=== PATIENT | male | born 1975 | race Caucasian/White ===

== ENCOUNTER 2016-07-10 08:00 | Emergency (ER) | payer SELFPAY ==
[2016-07-10 08:18] LABS: APPEARANCE,URINE Cloudy (CLEAR); COLOR,URINE Yellow (YELLOW); OCCULT BLOOD,URINE 2+ (NEGATIVE); PH URINE 8.5 (5.0 - 8.0); UROBILINOGEN URINE 0.2 Eu (0.2-1.0)
[2016-07-10 08:36] LABS: AMORPHOUS SEDIMENT,UR MODERATE (NEGATIVE)
[2016-07-10] MEDS ORDERED: 0.9 % SODIUM CHLORIDE 1,000 ML IV ONE ×3 (08:50→09:58)
[2016-07-10] MEDS ORDERED: KETOROLAC TROMETHAMINE 30 MG/1ML VIAL IVP ONE (08:50)
[2016-07-10] MEDS ORDERED: KETOROLAC TROMETHAMINE 30 MG/1ML VIAL ONE (08:52)
[2016-07-10] MEDS ORDERED: fentaNYL CITRATE/PF 100 MCG/ 2ML AMP IVP ONE (09:25)
[2016-07-10] MEDS ORDERED: TAMSULOSIN HCL 0.4 MG CAP.ER.24H PO ONE (10:36)
[2016-07-10] MEDS ORDERED: BUTORPHANOL TARTRATE 2 MG/ML VIAL IM ONE (11:20)
[2016-07-10 12:19] VITALS: BP 132/78
--- NOTE | 2016-07-10 13:47 | Diagnostic Imaging Report ---
[facility] [place] [facility] [address] [facility] [address] [place], [place]. [address] Report Submission Date: July 10, 2016 10:31:46 AM CDT Patient Study Name: TAMARA HILL Date: July 10, 2016 9:02:06 AM CDT Modality Type: CT\SR Gender: M Description: CT ABD & PELVIS W/O CO : 75 Institution: [facility] [place] [facility] Physician LOGAN BACH (ESOL INSTRUCTOR) - ER Computed tomography of the abdomen and pelvis without contrast HISTORY: Left flank pain and hematuria FINDINGS: Transverse abdomen and pelvis sections are obtained without contrast. Mild left hydroureteronephrosis and perinephric stranding are observed. A 5 x 11 mm proximal left ureteral stone is observed just beyond the ureteropelvic junction. 2 mm and 9 mm right intrarenal stones and a punctate left intrarenal stone are also present. The gallbladder, liver, pancreas, adrenals, spleen, mesenteric structures, and great vessels are unremarkable. Bowel loops exhibit normal caliber and wall thickness. No significant lumbar abnormality is observed. The appendix is normal. Pelvic sections reveal unremarkable bowel loops, prostate, seminal vesicles, and urinary bladder. No acute pelvic abnormality is observed. Pelvic phleboliths are noted. IMPRESSION: 5 x 11 mm proximal left ureteral stone with mild obstructive uropathy. Bilateral intrarenal stones. Electronically signed on July 10, 2016 10:31:46 AM CDT by: Manoj GE
--- NOTE | 2016-07-10 18:24 | ED Physician Documentation ---
Male Genitourinary Problems - HISTORIAN Historian: patient - HPI Stated Complaint: flank pain Chief Complaint: Male Genitourinary Problems Onset: hours (0100) Duration: continues in ED, worse Severity: severe Further Comments: yes (40 year old male patient presents with left flank pain which started at 0100, with nausea. Patient reports a history of renal calculi.) - Associated Symptoms Problems Urinating: pain w/ urination Flank Pain: left sided Abdominal Pain: LLQ - ROS CONST: none GI/: nausea, problems urinating (pain). denies: vomiting, abdominal pain MS/SKIN/LYMPH: none CVS/RESP: none EYES/ENT: none - PAST HX Past History: other (9mm renal calculi 2007, seizures, HLD, depression) Cardiac Disease: none Allergies/Adverse Reactions: Allergies Allergy/AdvReac Type Severity Reaction Status Date / Time No Known Allergies Allergy Unverified 07/10/16 08:27 Home Medications: Ambulatory Orders Medication Instructions Recorded Cholecalciferol [Vitamin D-3] 2,000 unit PO DAILY 07/10/16 Fluoxetine HCl [Prozac] 60 mg PO DAILY 07/10/16 Phenytoin Sodium Extended 100 mg PO QID 07/10/16 [Dilantin] Simvastatin [Zocor] 40 mg PO D 07/10/16 Sulfamethoxazole/Trimethoprim 1 each PO BID #20 tab 07/10/16 [Bactrim Ds] Trazodone HCl [Desyrel] 100 mg PO PRN 07/10/16 - SOCIAL HX Smoking History: cigarettes - FAMILY HX Family History: denies: none - VITAL SIGNS Vital Signs: Vital Signs Temp Pulse Resp BP Pulse Ox 98.3 F 82 18 132/78 98 07/10/16 12:17 07/10/16 12:17 07/10/16 12:17 07/10/16 12:17 07/10/16 12:17 - REVIEWED ASSESSMENTS Nursing Assessment Reviewed: Yes Vitals Reviewed: Yes Progress - Progress Progress: No improvement in pain with toradol injection; Patient medicated for pain fentanyl. Consult with urology, Dr Yao. Reviewed CT results - ok to discharge patient home, flomax and follow up in office. Additional pain medication given at discharge. Instructed patient to return to ER if pain was not controlled at home. ED Results Lab/Radiology - Lab Results Lab Results: Lab Results 07/10/16 08:05 Urine Color Yellow (YELLOW) Urine Appearance Cloudy (CLEAR) Urine pH 8.5 (5.0 - 8.0) Ur Specific [place] 1.015 (1.010-1.030) Urine Protein 1+ mg/dL H mg/dL (NEGATIVE) Urine Ketones Negative mg/dL mg/dL (NEGATIVE) Urine Occult Blood 2+ H (NEGATIVE) Urine Nitrite Negative (NEGATIVE) Urine Bilirubin Negative (NEGATIVE) Urine Urobilinogen 0.2 Eu Eu (0.2-1.0) Ur Leukocyte Esterase Negative (NEGATIVE) Urine RBC 10-25 H (0-2 HPF) Urine WBC 5-10 H (0-5 HPF) Ur Squamous Epith Cells Few (NEG-FEW) Amorphous Sediment Moderate H (NEGATIVE) Urine Bacteria Moderate H (NEGATIVE) Urine Mucus Present H (NEGATIVE) Urine Glucose Negative mg/dL mg/dL (NEGATIVE) - Radiology Radiology Impressions: HISTORY: Left flank pain and hematuria FINDINGS: Transverse abdomen and pelvis sections are obtained without contrast. Mild left hydroureteronephrosis and perinephric stranding are observed. A 5 x 11 mm proximal left ureteral stone is observed just beyond the ureteropelvic junction. 2 mm and 9 mm right intrarenal stones and a punctate left intrarenal stone are also present. The gallbladder, liver, pancreas, adrenals, spleen, mesenteric structures, and great vessels are unremarkable. Bowel loops exhibit normal caliber and wall thickness. No significant lumbar abnormality is observed. The appendix is normal. Pelvic sections reveal unremarkable bowel loops, prostate, seminal vesicles, and urinary bladder. No acute pelvic abnormality is observed. Pelvic phleboliths are noted. IMPRESSION: 5 x 11 mm proximal left ureteral stone with mild obstructive uropathy. Bilateral intrarenal stones. Electronically signed on July 10, 2016 10:31:46 AM CDT by: Manoj Wang - Orders Orders: ED Orders Category Date Time Status Place Saline Lock/IV NOW Care 07/10/16 08:[address] ABD & PELVIS W/O CON Stat Exams 07/10/16 Completed UA W/MICRO IF INDICATED Stat Lab 07/10/16 08:05 Completed URINE CULTURE Stat Lab 07/10/16 08:05 Received 0.9 % Sodium Chloride [Normal Saline] 1,000 ml Med 07/10/16 08:52 Discontinued IV .STK-MED 0.9 % Sodium Chloride [Normal Saline] 1,000 ml Med 07/10/16 08:50 Discontinued IV NOW 0.9 % Sodium Chloride [Normal Saline] 1,000 ml Med 07/10/16 09:58 Discontinued IV NOW Butorphanol Tartrate [Stadol] Med 07/10/16 11:20 Discontinued 2 mg IM NOW ONE Ketorolac Tromethamine [Toradol] Med 07/10/16 08:52 Discontinued 30 mg .ROUTE .STK-MED ONE Ketorolac Tromethamine [Toradol] Med 07/10/16 08:50 Discontinued 30 mg IVP NOW ONE Tamsulosin HCl [Flomax] Med 07/10/16 10:36 Discontinued 0.4 mg PO NOW ONE fentaNYL CITRATE/PF [Duragesic] Med 07/10/16 09:25 Discontinued 50 mcg IVP NOW ONE Male Genitourinary Problems - EXAM General Appearance: moderate distress Abdomen: non-tender, no organomegaly EENT: eye inspection normal, HARSHA Respiratory: no resp distress, chest non-tender, breath sounds normal CVS: reg rate & rhythm, heart sounds normal, equal pulses, no murmur, no gallop , PMI nml, no JVD, no friction rub, 24 Back: CVA tenderness (left) Extremities: normal range of motion, non-tender, normal inspection, no pedal edema, no calf tenderness, normal capillary refill, pelvis stable Neuro/Psych: oriented X3, CN's nml as tested, motor nml, sensation nml, mood/ affect nml Skin: normal color, warm/dry, NR, INT, PAL, DR Discharge Clincal Impression: Renal calculus, left Prescriptions: Sulfamethoxazole/Trimethoprim [Bactrim Ds] 1 each PO BID #20 tab Referrals: Primary Doctor,No [Primary Care Provider] - 2 Days Additional Instructions: Diagnosis: 5x11mm stone UTI Call Dr Yao office today - make a follow up visit marquita. Take your CD and report to the visit [phone] Return to the Er if you pain is not controlled, you are unable to void, or cannot keep down your medications. Home Medications: Ambulatory Orders Cholecalciferol [Vitamin D-3] 2,000 unit PO DAILY 07/10/16 Fluoxetine HCl [Prozac] 60 mg PO DAILY 07/10/16 Phenytoin Sodium Extended [Dilantin] 100 mg PO QID 07/10/16 Simvastatin [Zocor] 40 mg PO D 07/10/16 Sulfamethoxazole/Trimethoprim [Bactrim Ds] 1 each PO BID #20 tab 07/10/16 Trazodone HCl [Desyrel] 100 mg PO PRN 07/10/16 Condition: Stable Disposition: 01 HOME, SELF-CARE Decision to Admit: NO Decision Time: 12:05
== END 2016-07-10 12:17 | disposition home or self-care (01) ==
LOC: ED 08:00
DX: N20.0 Calculus of kidney (principal)
CPT/HCPCS: 74176; 81002; 87086; J0595; J1885; J3010; J7030; 96361; 96372; 96374; 96375; 99284; S1016

== ENCOUNTER 2016-07-28 15:22 | Emergency (ER) | payer SELFPAY ==
[2016-07-28] MEDS ORDERED: oxyCODONE/ACETAMINOPHEN 5/325 TABLET PO ONE ×2 (16:05→16:07)
[2016-07-28 16:54] VITALS: BP 132/68
--- NOTE | 2016-07-28 17:00 | ED Physician Documentation ---
Male Genitourinary Problems - HISTORIAN Historian: patient - HPI Stated Complaint: "PERCOCET REFILL" Chief Complaint: Male Genitourinary Problems Additional Information: here for percocet refill re kidney stones. cleared prov by DR YANG - yes by hosp adm after finding urologists out of town and confirming appt for lithotripsy at [facility] as pt states. Onset: other (chronic recurrent-lab reveals multi stones both kidneys prev ct [facility]) Duration: continues in ED Context: drug use Severity: moderate, severe - Associated Symptoms Abdominal Pain: none - Sexual History Sexual History: non-contributory - ROS CONST: none GI/: nausea, abdominal pain. denies: vomiting MS/SKIN/LYMPH: none CVS/RESP: none - PAST HX Past History: kidney stones (high cholesterol) Cardiac Disease: none Surgeries/Procedures: tonsillectomy Allergies/Adverse Reactions: Allergies Allergy/AdvReac Type Severity Reaction Status Date / Time No Known Allergies Allergy Unverified 07/10/16 08:27 Home Medications: Ambulatory Orders Medication Instructions Recorded Cholecalciferol [Vitamin D-3] 2,000 unit PO DAILY 07/10/16 Fluoxetine HCl [Prozac] 60 mg PO DAILY 07/10/16 Phenytoin Sodium Extended 100 mg PO QID 07/10/16 [Dilantin] Simvastatin [Zocor] 40 mg PO D 07/10/16 Sulfamethoxazole/Trimethoprim 1 each PO BID #20 tab 07/10/16 [Bactrim Ds] Trazodone HCl [Desyrel] 100 mg PO HS PRN 07/10/16 - SOCIAL HX Smoking History: non-smoker (none for 3 weeks) Alcohol Use: none Drug Use: none - FAMILY HX Family History: none - VITAL SIGNS Vital Signs: Vital Signs Temp Pulse Resp BP Pulse Ox 97 F L 87 18 128/96 98 07/28/16 15:25 07/28/16 15:25 07/28/16 15:25 07/28/16 15:25 07/28/16 15:25 - REVIEWED ASSESSMENTS Nursing Assessment Reviewed: Yes Vitals Reviewed: Yes ED Results Lab/Radiology - Orders Orders: ED Orders Category Date Time Status oxyCODONE HCL/ACETAMINOPHEN [Percocet 5-325 mg Tablet] Med 07/28/16 16:05 Discontinued 1 each PO .STK-MED ONE oxyCODONE HCL/ACETAMINOPHEN [Percocet 5-325 mg Tablet] Med 07/28/16 16:07 Discontinued 1 each PO NOW ONE Male Genitourinary Problems - EXAM General Appearance: moderate distress Abdomen: tenderness. No: non-tender, guarding, rebound EENT: ENT inspection normal Respiratory: no resp distress, chest non-tender, breath sounds normal. No: wheezes, rales, rhonchi CVS: reg rate & rhythm, heart sounds normal Extremities: normal range of motion Neuro/Psych: oriented X3, motor nml, sensation nml, mood/affect nml Skin: diaphoresis Discharge Clincal Impression: Renal lithiasis Referrals: Primary Doctor,No [Primary Care Provider] - 2 Days Home Medications: Ambulatory Orders Cholecalciferol [Vitamin D-3] 2,000 unit PO DAILY 07/10/16 Fluoxetine HCl [Prozac] 60 mg PO DAILY 07/10/16 Phenytoin Sodium Extended [Dilantin] 100 mg PO QID 07/10/16 Simvastatin [Zocor] 40 mg PO D 07/10/16 Sulfamethoxazole/Trimethoprim [Bactrim Ds] 1 each PO BID #20 tab 07/10/16 Trazodone HCl [Desyrel] 100 mg PO HS PRN 07/10/16 Condition: Fair Disposition: 01 HOME, SELF-CARE Decision to Admit: NO Decision Time: 16:59
== END 2016-07-28 16:52 | disposition home or self-care (01) ==
LOC: ED 15:22
DX: N20.0 Calculus of kidney (principal)
CPT/HCPCS: A9270 ×2; 99283

== ENCOUNTER 2016-09-06 13:05 | Emergency (ER) | payer OTHER ==
[2016-09-06] MEDS ORDERED: KETOROLAC TROMETHAMINE 30 MG/1ML VIAL IVP ONE (13:26)
[2016-09-06] MEDS ORDERED: 0.9 % SODIUM CHLORIDE 1,000 ML IV ONE (13:27)
[2016-09-06 13:35] LABS: APPEARANCE,URINE Cloudy (CLEAR); COLOR,URINE Yellow (YELLOW); OCCULT BLOOD,URINE 3+ (NEGATIVE); PH URINE 5.5 (5.0 - 8.0); UROBILINOGEN URINE 0.2 Eu (0.2-1.0)
[2016-09-06 13:40] LABS: BASOPHILS % 0.6 (0.0-1.5); EOSINOPHILS % 2.4 % (0.0-6.8); MEAN CORPUSCULAR HEMOGLOBIN 31.8 pg (28.0-34.0); MEAN CORPUSCULAR VOLUME 91.6 fl (80.0-100.0); MONOCYTES % 4.8 % (0.0-11.0); NEUTROPHILS # 4.9 # k/uL (1.4-7.7)
[2016-09-06 13:44] LABS: AMORPHOUS SEDIMENT,UR FEW (NEGATIVE)
--- NOTE | 2016-09-06 13:44 | ED Physician Documentation ---
General Adult - HISTORIAN Historian: patient - HPI Stated Complaint: Hematuria Chief Complaint: General Adult Additional Information: Right Lithotripsy and Left stone retrieval with stent placement on 08/29, for two stones he says were 5x11 mm. Left flank and urethral pain and hematuria began this morning. Says he called his urologist and was told to come to ER. - ROS CONST: no problems - PAST HX Past History: other (kidney stones) Allergies/Adverse Reactions: Allergies Allergy/AdvReac Type Severity Reaction Status Date / Time No Known Allergies Allergy Verified 09/06/16 13:13 Home Medications: Ambulatory Orders Medication Instructions Recorded Cholecalciferol [Vitamin D-3] 2,000 unit PO DAILY 07/10/16 Fluoxetine HCl [Prozac] 60 mg PO DAILY 07/10/16 Phenytoin Sodium Extended 100 mg PO QID 07/10/16 [Dilantin] Simvastatin [Zocor] 40 mg PO D 07/10/16 Trazodone HCl [Desyrel] 100 mg PO HS PRN 07/10/16 - SOCIAL HX Smoking History: non-smoker - FAMILY HX Family History: No - VITAL SIGNS Vital Signs: Vital Signs Temp Pulse Resp BP Pulse Ox 99.1 F 69 18 147/94 97 09/06/16 13:14 09/06/16 13:14 09/06/16 13:14 09/06/16 13:14 09/06/16 13:14 - REVIEWED ASSESSMENTS Nursing Assessment Reviewed: Yes Vitals Reviewed: Yes Progress - Progress Progress: Examination: CT Abdomen/pelvis History: Left flank discomfort Comparison exams: 10 Jul 2016 Technique: CT Abdomen/pelvis without contrast protocol. Findings: Renal cortical margins are symmetric. Left ureteral stent in place. No suspicious left-sided renal calcification. Right kidney demonstrates numerous calcifications involving the inferior margin: largest cluster measures 7 mm. Mild dilation of the right ureter. At the ureterovesicular junction is 4 mm calcification. Faint sub millimeter calcifications within the distal ureter. Bladder as visualized is without other gross irregularity given technique. Scattered pelvic phleboliths. Liver, spleen, adrenals, gallbladder and pancreas are without gross irregularity. Bowel unopacified limiting evaluation. Appendix region without inflammatory changes. No mesenteric inflammatory changes or free fluid. Hiatal hernia. Osseous structures demonstrate degenerative changes. Lung bases without infiltrate. Impression: Left ureteral stent in place. 4 mm Right ureterolithiasis - stone at the right ureterovesicular junction. Dilation of the proximal right ureter with possible small submillimeter residual calcifications within the distal ureter lumen. Right nephrolithiasis. Hiatal hernia. Electronically signed on Sep 06, 2016 2:19:49 PM CDT by: Pardeep Carlson Script filled 08/29for #50 5/325 percocet. Wants pain meds. ED Results Lab/Radiology - Orders Orders: ED Orders Category Date Time Status Place IV Lock 1T Care 09/06/16 13:[address] ABD & PELVIS W/O CON Stat Exams 09/06/16 Ordered CBC/PLATELET/DIFF Routine Lab 09/06/16 Ordered CMP [CMP] Routine Lab 09/06/16 Ordered UA [URINALYSIS] Routine Lab 09/06/16 13:30 Received 0.9 % Sodium Chloride [Normal Saline] 1,000 ml Med 09/06/16 13:27 Active IV Q1H Ketorolac Tromethamine [Toradol] Med 09/06/16 13:26 Discontinued 30 mg IVP NOW ONE General Adult Physical Exam - PHYSICAL EXAM GENERAL APPEARANCE: mild distress EENT: eye inspection normal, ENT inspection normal NECK: normal inspection, supple RESPIRATORY: no resp distress, breath sounds normal CVS: reg rate & rhythm, heart sounds normal, no murmur ABDOMEN: soft, normal bowel sounds RECTAL: deferred BACK: normal inspection, no CVA tenderness, other (no vertebral tenderness) SKIN: warm/dry, normal color EXTREMITIES: no evidence of injury, no edema NEURO: CN's nml as tested, motor nml, sensation nml, cognition normal Discharge Clincal Impression: Kidney stone on right side Referrals: Primary Doctor,No [Primary Care Provider] - 2 Days Home Medications: Ambulatory Orders Cholecalciferol [Vitamin D-3] 2,000 unit PO DAILY 07/10/16 Fluoxetine HCl [Prozac] 60 mg PO DAILY 07/10/16 Phenytoin Sodium Extended [Dilantin] 100 mg PO QID 07/10/16 Simvastatin [Zocor] 40 mg PO D 07/10/16 Trazodone HCl [Desyrel] 100 mg PO HS PRN 07/10/16 Condition: Good Disposition: 01 HOME, SELF-CARE Decision to Admit: NO Decision Time: 14:30
[2016-09-06 14:01] LABS: eGFR (African) > 60; eGFR (Non-African) > 60
[2016-09-06 14:41] VITALS: BP 132/67
--- NOTE | 2016-09-06 14:46 | Diagnostic Imaging Report ---
TRINY CUENCA - [place] [address] [facility] [address] [place], [place]. [address] Report Submission Date: Sep 06, 2016 2:19:49 PM CDT Patient Study Name: TAMARA HILL Date: Sep 06, 2016 1:47:02 PM CDT Modality Type: CT\SR Gender: M Description: CT ABD & PELVIS W/O CO : 75 Institution: Physician: TRINY CUENCA Examination: CT Abdomen/pelvis History: Left flank discomfort Comparison exams: 10 Jul 2016 Technique: CT Abdomen/pelvis without contrast protocol. Findings: Renal cortical margins are symmetric. Left ureteral stent in place. No suspicious left-sided renal calcification. Right kidney demonstrates numerous calcifications involving the inferior margin: largest cluster measures 7 mm. Mild dilation of the right ureter. At the ureterovesicular junction is 4 mm calcification. Faint sub millimeter calcifications within the distal ureter. Bladder as visualized is without other gross irregularity given technique. Scattered pelvic phleboliths. Liver, spleen, adrenals, gallbladder and pancreas are without gross irregularity. Bowel unopacified limiting evaluation. Appendix region without inflammatory changes. No mesenteric inflammatory changes or free fluid. Hiatal hernia. Osseous structures demonstrate degenerative changes. Lung bases without infiltrate. Impression: Left ureteral stent in place. 4 mm Right ureterolithiasis - stone at the right ureterovesicular junction. Dilation of the proximal right ureter with possible small submillimeter residual calcifications within the distal ureter lumen. Right nephrolithiasis. Hiatal hernia. Electronically signed on Sep 06, 2016 2:19:49 PM CDT by: Pardeep GE
== END 2016-09-06 14:40 | disposition home or self-care (01) ==
LOC: ED 13:05
DX: N20.0 Calculus of kidney (principal)
CPT/HCPCS: 74176; 80053; 81002; 85025; 87086; J1885; J7030; 96361; 96374; 99283; S1016

== ENCOUNTER 2017-04-03 10:34 | Emergency (ER) | payer OTHER ==
[2017-04-03 10:54] VITALS: BP 133/83
--- NOTE | 2017-04-03 11:13 | ED Physician Documentation ---
General Adult - HISTORIAN Historian: patient - HPI Stated Complaint: R flank pain Chief Complaint: General Adult Additional Information: Patient has had a history of kidney stones. Had a stone o n the right side and had lithotripsy done and a stint placed one week ago. Started to have have associated with the stint 1-2 days after procedure. Has had progressive discomfort associated with it. Pain in the bladder area and right flank area all the time. Worse post voiding. Has had some nausea and vomiting associated with pain. No fever noted. Has not passed any blood clots over the last two days. Timing: still present, worse Modifying Factors: movement Quality: intense sharp pain - ROS CONST: denies: fever, chills GI/: denies: problems urinating - PAST HX Past History: kidney stones Other History: none Surgeries/Procedures: other (lithotripty) Immunizations: referred to PCP Allergies/Adverse Reactions: Allergies Allergy/AdvReac Type Severity Reaction Status Date / Time No Known Allergies Allergy Verified 04/03/17 10:54 Home Medications: Ambulatory Orders Medication Instructions Recorded Cholecalciferol [Vitamin D-3] 2,000 unit PO DAILY 07/10/16 Fluoxetine HCl [Prozac] 60 mg PO DAILY 07/10/16 Phenytoin Sodium Extended 100 mg PO QID 07/10/16 [Dilantin] Simvastatin [Zocor] 40 mg PO D 07/10/16 Trazodone HCl [Desyrel] 100 mg PO HS PRN 07/10/16 - SOCIAL HX Smoking History: less than 1 pack/day Alcohol Use: none Drug Use: none - FAMILY HX Family History: No - VITAL SIGNS Vital Signs: Vital Signs Temp Pulse Resp BP Pulse Ox 97.8 F 79 18 133/83 98 04/03/17 10:36 04/03/17 10:36 04/03/17 10:36 04/03/17 10:36 04/03/17 10:36 - REVIEWED ASSESSMENTS Nursing Assessment Reviewed: Yes Vitals Reviewed: Yes Progress - Progress Progress: 11:10 toradal did not help with pain much, will give fentanyl IV 11:35 Pain improved 12:10 Pain returning General Adult Physical Exam - PHYSICAL EXAM GENERAL APPEARANCE: mild distress NECK: normal inspection RESPIRATORY: no resp distress, chest non-tender, breath sounds normal. No: wheezes, rales, rhonchi CVS: reg rate & rhythm, heart sounds normal, equal pulses, no murmur, no gallop ABDOMEN: soft, normal bowel sounds, no distension, tenderness (RLQ andright flank area). No: rebound, guarding BACK: CVA tenderness (R) (mild) SKIN: warm/dry, normal color NEURO: oriented X3, mood/affect nml, cognition normal Discharge Clincal Impression: Flank pain Referrals: Primary Doctor,No [Primary Care Provider] - 2 Days Additional Instructions: Patient advised that [facility] will call in pain medication for him and to try to leave the stint in place until appointment to take it out. If you continue to have a lot of discomfort to follow-up with urologist or return to the ED. Condition: Stable Disposition: 01 HOME, SELF-CARE Decision to Admit: NO Date of Decison to Admit: 04/03/17 Decision Time: 12:19
[2017-04-03] MEDS ORDERED: fentaNYL CITRATE/PF 100 MCG/ 2ML AMP IVP ONE ×2 (11:14→12:08)
[2017-04-03 11:29] LABS: BASOPHILS % 0.3 (0.0-1.5); EOSINOPHILS % 2.1 % (0.0-6.8); MEAN CORPUSCULAR HEMOGLOBIN 31.1 pg (28.0-34.0); MEAN CORPUSCULAR VOLUME 92.2 fl (80.0-100.0); MONOCYTES % 4.1 % (0.0-11.0); NEUTROPHILS # 6.3 # k/uL (1.4-7.7)
[2017-04-03] MEDS ORDERED: ONDANSETRON HCL/PF 4 MG/ 2ML VIAL ONE (11:40)
[2017-04-03 11:45] LABS: eGFR (African) > 60; eGFR (Non-African) > 60
[2017-04-04 06:01] LABS: APPEARANCE,URINE CLEAR (CLEAR); COLOR,URINE YELLOW (YELLOW); OCCULT BLOOD,URINE 3+ (NEGATIVE); PH URINE 7.5 (5.0 - 8.0)
== END 2017-04-03 12:27 | disposition home or self-care (01) ==
LOC: ED 10:34
DX: R10.84 Generalized abdominal pain (principal)
CPT/HCPCS: 80053; 81002; 85025; 87086; J2405; J3010; 96374; 96376; 99283; S1016

== ENCOUNTER 2017-07-06 15:04 | Emergency (ER) | payer OTHER ==
[2017-07-06] MEDS: fentaNYL CITRATE/PF 100 MCG/ 2ML AMP IVP ONE (16:48)
--- NOTE | 2017-07-06 16:59 | ED Physician Documentation ---
Abdominal Pain - HISTORIAN Historian: patient - HPI Stated Complaint: Lt flank pain Chief Complaint: Abdominal Pain Additonal Information: lt flank pain 8/10 pmh many prev gu lithiasis multi laser and stents Onset: minutes, hours (30) Duration: constant, waxing, waning Timing: worse Context: denies: out of country travel, bad food Severity: moderate Quality: pain, cramping Associated Symptoms: none, other (had loose stool this am) Further Comments: yes (hx many large gu lithiasis) - ROS CONST: no problems GI/: denies: bloody urine, bloody stools, dark urine EYES/ENT: denies: problems with vision MS/SKIN/LYMPH: none NEURO/PSYCH: none - SOCIAL HX Smoking History: cigarettes Alcohol Use: none Drug Use: none - FAMILY HX Family History: kidney stones - PAST HX Past History: kidney stones, kidney infection, other (anxiety depression) Surgeries/Procedures: other (multi k stones and stents) Home Medications: Ambulatory Orders Medication Instructions Recorded Cholecalciferol [Vitamin D-3] 2,000 unit PO DAILY 07/10/16 Fluoxetine HCl [Prozac] 60 mg PO DAILY 07/10/16 Phenytoin Sodium Extended 100 mg PO QID 07/10/16 [Dilantin] Simvastatin [Zocor] 40 mg PO D 07/10/16 Trazodone HCl [Desyrel] 100 mg PO HS PRN 07/10/16 Allergies/Adverse Reactions: Allergies Allergy/AdvReac Type Severity Reaction Status Date / Time No Known Allergies Allergy Verified 04/03/17 10:54 - VITAL SIGNS Vital Signs: Vital Signs Temp Pulse Resp BP Pulse Ox 97.5 F L 88 18 128/89 99 07/06/17 15:04 07/06/17 15:04 07/06/17 15:04 07/06/17 15:04 07/06/17 15:04 - REVIEWED ASSESSMENTS Nursing Assessment Reviewed: Yes Vitals Reviewed: Yes ED Results Lab/Radiology - Orders Orders: ED Orders Category Date Time Status CT ABDOMEN PELVIS S [CT ABD & PELVIS W/O CON] Stat Exams 07/06/17 Ordered fentaNYL CITRATE/PF [Duragesic] Med 07/06/17 16:39 Discontinued 100 mcg IVP NOW ONE Abdominal Pain Physical Exam - Physical Exam General Appearance: mild distress, moderate distress EENT: eye inspection normal NECK: normal inspection, thyroid normal, supple RESPIRATORY: no resp distress, chest non-tender, breath sounds normal CVS: reg rate & rhythm, heart sounds normal ABDOMEN: soft, tenderness (genl ezio lt mid abdomen). No: rebound, distended, guarding SKIN: warm/dry, normal color. No: cyanosis, diaphoresis, jaundice EXTREMITIES: non-tender, normal range of motion, no evidence of injury, no edema NEURO: oriented X3, motor nml, sensation nml, mood/affect nml Vital Signs: Vital Signs Temp Pulse Resp BP Pulse Ox 97.5 F L 88 18 128/89 99 07/06/17 15:04 07/06/17 15:04 07/06/17 15:04 07/06/17 15:04 07/06/17 15:04 Discharge Clincal Impression: un dx abdomen pain-constipation, pnh multi gu lithiasis, multi stones kidneys- ureters clear, suspect constipation Referrals: Primary Doctor,No [Primary Care Provider] - 2 Days Comments: send ct disc w/ pt -f/u soon w/pcp or urologists. rec laxative high fluid intake Condition: Fair Disposition: 01 HOME, SELF-CARE Decision to Admit: NO Decision Time: 17:21
[2017-07-06 18:46] VITALS: BP 128/72
--- NOTE | 2017-07-06 19:30 | Diagnostic Imaging Report ---
TIGRE XIE [facility] [id number] [facility] [address] [place], [place]. [address] Report Submission Date: July 06, 2017 4:52:39 PM CDT Patient Study Name: TAMARA HILL Date: July 06, 2017 4:19:01 PM CDT Modality Type: CT\SR Gender: M Description: CT ABD PELVIS W/O CO : 75 Institution: [facility] Physician: TIGRE XIE Examination: CT Abdomen/pelvis History: CT A/P W/O, RENAL STONE PROTOCOL, LEFT FLANK PAIN SINCE NOON, HX OF KIDNEY STONES, MOST RECENTLY IN MID MAR. (Hx) Comparison exams: 06 September 2016 Technique: CT Abdomen/pelvis without IV protocol. Findings: Liver, spleen, adrenals, pancreas, kidneys and gallbladder are without gross irregularity given exam technique. No gallstone. Bilateral punctate calyceal calcifications. Ureters are nondilated in their course through the abdomen and pelvis. No central calcifications. Bladder margin within normal limits. Abdominal aorta without aneurysm or peripheral atherosclerotic disease. Cardiac silhouette is not enlarged. No pericardial effusion. Bowel unopacified limiting evaluation. No abnormal dilation. Stool within the large bowel limiting sensitivity. No mesenteric inflammatory changes or free fluid. Appendix is visualized and is without inflammatory changes. Osseous structures demonstrate early L5/S1 degenerative disease. No compression deformity. Lung bases without infiltrate. No effusion. Impression: No abdominal mass or acute inflammatory process. No abnormal bowel dilation or inflammation. No gallstone. Bilateral nephrolithiasis. No abnormal ureteric dilation. No lung base consolidation or effusion. Electronically signed on July 06, 2017 4:52:39 PM CDT by: Pardeep GE
[2017-07-07 06:05] LABS: APPEARANCE,URINE CLEAR (CLEAR); COLOR,URINE ORANGE (YELLOW)
[2017-07-07 06:06] LABS: OCCULT BLOOD,URINE NEGATIVE (NEGATIVE); PH URINE 8.5 (5.0 - 8.0); UROBILINOGEN URINE >=8.0 Eu (0.2-1.0)
== END 2017-07-06 17:35 | disposition home or self-care (01) ==
LOC: ED 15:04
DX: R10.9 Unspecified abdominal pain (principal); Z87.442 Personal history of urinary calculi
CPT/HCPCS: 74176; 81002; 87086; J3010; 96374; S1016

== ENCOUNTER 2017-07-27 13:55 | Emergency (ER) | payer OTHER ==
[2017-07-27 14:31] VITALS: BP 116/78
[2017-07-27] MEDS ORDERED: TAMSULOSIN HCL 0.4 MG CAP.ER.24H PO ONE (14:40)
--- NOTE | 2017-07-27 14:48 | ED Physician Documentation ---
Male Genitourinary Problems - HISTORIAN Historian: patient - HPI Stated Complaint: difficulty urinating Chief Complaint: Male Urogenital Problems Additional Information: x 2 days, urinating small amounts Onset: days ago (2) Duration: continues in ED Context: recent surgery (urinary stenting) Severity: mild Further Comments: no - Associated Symptoms Problems Urinating: frequent urination, other (samll amounts of urine/dribbling) . denies: discomfort w/ urination Penile Discharge Descripiton: other (none) Testicular Pain: none Testicular Swelling: none Penile Pain: No Penile Swelling: No Inguinal Mass: No Abdominal Pain: mild, suprapubic - Sexual History Sexual History: non-contributory - ROS CONST: none GI/: abdominal pain, problems urinating. denies: nausea, vomiting MS/SKIN/LYMPH: none CVS/RESP: none EYES/ENT: none NEURO/PSYCH: denies: fainting, dizziness, tingling, numbness, anxiety, depression - PAST HX Past History: other (kidney stones) Cardiac Disease: none Surgeries/Procedures: none Immunizations: referred to PCP Allergies/Adverse Reactions: Allergies Allergy/AdvReac Type Severity Reaction Status Date / Time No Known Allergies Allergy Verified 07/27/17 14:31 Home Medications: Ambulatory Orders Medication Instructions Recorded Cholecalciferol [Vitamin D-3] 2,000 unit PO DAILY 07/10/16 Fluoxetine HCl [Prozac] 60 mg PO DAILY 07/10/16 Phenytoin Sodium Extended 100 mg PO QID 07/10/16 [Dilantin] Simvastatin [Zocor] 40 mg PO D 07/10/16 Trazodone HCl [Desyrel] 100 mg PO HS PRN 07/10/16 - SOCIAL HX Smoking History: cigarettes Alcohol Use: none Drug Use: none - FAMILY HX Family History: none - VITAL SIGNS Vital Signs: Vital Signs Temp Pulse Resp BP Pulse Ox 99.2 F 59 L 18 116/78 96 07/27/17 13:55 07/27/17 13:55 07/27/17 13:55 07/27/17 13:55 07/27/17 13:55 - REVIEWED ASSESSMENTS Nursing Assessment Reviewed: Yes Vitals Reviewed: Yes Progress - Results/Orders Results/Orders: ua ordered - Progress Progress: Pt. catheterized, 50 cc clear urine obtained Critical Care Note - Critical Care Note Total Time (mins): 0 ED Results Lab/Radiology - Lab Results Lab Results: ua unremarkable - Radiology Radiology Impressions: none ordered - Orders Orders: ED Orders Category Date Time Status Redd [Urinary catheterization] 1T Care 07/27/17 14:05 Active URINALYSIS Routine Lab 07/27/17 14:06 Ordered Tamsulosin HCl [Flomax] Med 07/27/17 14:40 Once 0.4 mg PO NOW ONE Male Genitourinary Problems - EXAM General Appearance: mild distress Abdomen: tenderness (suprapubic area) Genitals: nml inspection EENT: eye inspection normal, ENT inspection normal, pharynx normal, no signs of dehydration, HARSHA Neck: nml inspection Respiratory: no resp distress CVS: reg rate & rhythm, heart sounds normal, equal pulses Back: non-tender. No: CVA tenderness Rectal: prostate enlarged (slightly). No: prostate tenderness Extremities: normal range of motion, non-tender, normal inspection, no pedal edema, no calf tenderness Neuro/Psych: oriented X3, CN's nml as tested, motor nml, sensation nml, mood/ affect nml, cognition normal Skin: warm/dry, normal color Discharge Clincal Impression: Benign prostate hyperplasia Qualifiers: Lower urinary tract symptom presence: symptoms present Lower urinary tract symptom detail: incomplete bladder emptying Qualified Code(s): N40.1 - Benign prostatic hyperplasia with lower urinary tract symptoms Referrals: Primary Doctor,No [Primary Care Provider] - 2 Days Comments: increase Flomax to 0.8 mg p.o. daily for 7 days Condition: Stable Disposition: 01 HOME, SELF-CARE Decision to Admit: NO Decision Time: 14:48
[2017-07-27 16:08] LABS: APPEARANCE,URINE CLEAR (CLEAR); COLOR,URINE YELLOW (YELLOW); OCCULT BLOOD,URINE NEGATIVE (NEGATIVE)
[2017-07-27 16:09] LABS: PH URINE 7.5 (5.0 - 8.0); UROBILINOGEN URINE 0.2 Eu (0.2-1.0)
== END 2017-07-27 14:50 | disposition home or self-care (01) ==
LOC: ED 13:55
DX: N40.1 Benign prostatic hyperplasia with lower urinary tract symptoms (principal)
CPT/HCPCS: 51701; 81002; 99284

== ENCOUNTER 2017-07-31 10:53 | Emergency (ER) | payer OTHER ==
--- NOTE | 2017-07-31 11:53 | ED Physician Documentation ---
Dizziness - HISTORIAN Historian: patient - HPI Stated Complaint: dizzy Chief Complaint: Dizziness Additional Information: 42 yo white male with a 2 day history of dizziness. No precipitating factor noted. Turning head, standing up brings dizziness on. No nausea noted. Has some fluttering anxiety feeling when he gets dizzy. No hearing problems, no tinnitus noted. Associated Symptoms: sense of falling. denies: hearing loss, ringing in ear, roaring in ear, ear pain, nausea, vomiting, sense of spinning, light headedness , fainted Decreased Ability to Stand/ Walk: off balance. denies: weak Usually: walks w/o assistance Worsened By: changing position, movement of head - ROS CONST: none EYES/ENT: none - PAST HX Past History: hyperlipidemia, other (kidney stones, history of seizures) Cardiac Disease: none Surgeries/Procedures: none Allergies/Adverse Reactions: Allergies Allergy/AdvReac Type Severity Reaction Status Date / Time No Known Allergies Allergy Verified 07/27/17 14:31 Home Medications: Ambulatory Orders Medication Instructions Recorded Cholecalciferol [Vitamin D-3] 2,000 unit PO DAILY 07/10/16 Phenytoin Sodium Extended 100 mg PO QID 07/10/16 [Dilantin] Simvastatin [Zocor] 40 mg PO D 07/10/16 Citalopram Hydrobromide [Celexa] 40 mg PO D 07/27/17 LORazepam [Ativan] 1 mg PO D 07/27/17 Oxycodone HCl/Acetaminophen 1 tab PO PRN PRN 07/27/17 [Primlev 5-300 mg Tablet] Tamsulosin HCl [Flomax] 0.4 mg PO D 07/27/17 - SOCIAL HX Smoking History: less than 1 pack/day (1/2 ppd) Alcohol Use: none Drug Use: none - FAMILY HX Family History: none - VITAL SIGNS Vital Signs: Vital Signs Temp Pulse Resp BP Pulse Ox 99.7 F H 87 16 136/76 99 07/31/17 11:03 07/31/17 11:16 07/31/17 11:03 07/31/17 11:16 07/31/17 11:03 - REVIEWED ASSESSMENTS Nursing Assessment Reviewed: Yes Vitals Reviewed: Yes Dizziness Physical Exam - Physical Exam General Appearance: mild distress EENT: eye inspection normal, ENT inspection normal, pharynx normal, no signs of dehydration. No: abnormal TM, hearing deficit, purulent nasal drainage Neck: normal inspection, thyroid normal, supple Respiratory: no respiratory distress, breath sounds nml. No: chest non-tender, respiratory distress, wheezes, rales, rhonchi CVS: reg rate & rhythm, heart sounds normal, equal pulses Abdomen: soft, no organomegaly, normal bowel sounds, no abdominal bruit, no distension Skin: warm/dry Neuro: nml orientation, nml speech, nml cognition, mood/affect nml Extremities: non-tender Cranial: nml as tested, no evidence of acute CVA Cerebellar: nml as tested Sensorimotor: motor nml, sensation nml Discharge Clincal Impression: Benign positional vertigo Referrals: Primary Doctor,No [Primary Care Provider] - 2 Days Additional Instructions: Drink a lot of fluids. Take meclizine (Antivert) 25mg one tablets 4 times a day as needed for dizziness. If symptoms are not improving to see your primary care provider or return to the ED. Work excuse to return to work on 02 AUGUST 2017 with no restrictions. Condition: Stable Disposition: 01 HOME, SELF-CARE Decision to Admit: NO Date of Decison to Admit: 07/31/17 Decision Time: 13:17
[2017-07-31] MEDS ORDERED: 0.9 % SODIUM CHLORIDE 1,000 ML IV SCH (12:00)
[2017-07-31] MEDS ORDERED: 0.9 % SODIUM CHLORIDE 1,000 ML IV ONE (12:19)
[2017-07-31 12:30] LABS: BASOPHILS % 0.2 (0.0-1.5); EOSINOPHILS % 1.5 % (0.0-6.8); MEAN CORPUSCULAR HEMOGLOBIN 30.8 pg (28.0-34.0); MEAN CORPUSCULAR VOLUME 92.6 fl (80.0-100.0); MONOCYTES % 4.4 % (0.0-11.0); NEUTROPHILS # 3.9 # k/uL (1.4-7.7)
[2017-07-31 12:42] LABS: eGFR (African) > 60; eGFR (Non-African) > 60
[2017-07-31 13:28] LABS: APPEARANCE,URINE CLEAR (CLEAR); COLOR,URINE YELLOW (YELLOW); OCCULT BLOOD,URINE NEGATIVE (NEGATIVE); PH URINE 8.5 (5.0 - 8.0); UROBILINOGEN URINE 0.2 Eu (0.2-1.0)
[2017-07-31 13:37] VITALS: BP 130/70
== END 2017-07-31 13:35 | disposition home or self-care (01) ==
LOC: ED 10:53
DX: H81.10 Benign paroxysmal vertigo, unspecified ear (principal)
CPT/HCPCS: 80053; 81002; 85025; 96365; 96366; S1016

== ENCOUNTER 2017-08-16 15:40 | Emergency (ER) | payer OTHER ==
[2017-08-16 15:54] VITALS: BP 138/94
--- NOTE | 2017-08-16 15:57 | ED Physician Documentation ---
General Adult - HISTORIAN Historian: patient - HPI Stated Complaint: R foot pain Chief Complaint: General Adult Onset: minutes (45) Timing: still present Severity: moderate Further Comments: yes (Pt is a 42 yo male who dropped a heavy tool box onto his R foot. Pt has pain throughout anterior foot. Pain with moving his toes. Tetanus status unknown.) - ROS CONST: no problems EYES/ENT: none CVS/RESP: none GI/: none MS/SKIN/LYMPH: other (abrasion ventral R foot, tenderness.) - PAST HX Past History: other (HLD, anxiety, BPH) Allergies/Adverse Reactions: Allergies Allergy/AdvReac Type Severity Reaction Status Date / Time No Known Allergies Allergy Verified 08/16/17 15:54 Home Medications: Ambulatory Orders Medication Instructions Recorded Cholecalciferol [Vitamin D-3] 2,000 unit PO DAILY 07/10/16 Phenytoin Sodium Extended 100 mg PO QID 07/10/16 [Dilantin] Simvastatin [Zocor] 40 mg PO D 07/10/16 Citalopram Hydrobromide [Celexa] 40 mg PO D 07/27/17 LORazepam [Ativan] 1 mg PO D 07/27/17 Oxycodone HCl/Acetaminophen 1 tab PO PRN PRN 07/27/17 [Primlev 5-300 mg Tablet] Tamsulosin HCl [Flomax] 0.4 mg PO D 07/27/17 - SOCIAL HX Smoking History: cigarettes - FAMILY HX Family History: No - VITAL SIGNS Vital Signs: Vital Signs Temp Pulse Resp BP Pulse Ox 97.3 F L 80 17 138/94 97 08/16/17 15:50 08/16/17 15:50 08/16/17 15:50 08/16/17 15:50 08/16/17 15:50 - REVIEWED ASSESSMENTS Nursing Assessment Reviewed: Yes Vitals Reviewed: Yes Progress - Progress Progress: Toradol 60 mg IM X-ray R foot: 3 views of the right foot demonstrates normal cortical margins. No fracture or dislocation. No soft tissue swelling. No joint effusion. Impression: No acute osseous process. Ibuprofen, ice, prn ED Results Lab/Radiology - Orders Orders: ED Orders Category Date Time Status FOOT 3 VIEWS OR MORE [RAD] Stat Exams 08/16/17 Ordered General Adult Physical Exam - PHYSICAL EXAM GENERAL APPEARANCE: mild distress NECK: normal inspection, supple RESPIRATORY: no resp distress, chest non-tender, breath sounds normal CVS: reg rate & rhythm, heart sounds normal BACK: normal inspection SKIN: other (minor abrasion ventral R foot; tenderness to palpation anterior R foot; FROM) EXTREMITIES: normal range of motion, other (minor abrasion ventral R foot; tenderness to palpation anterior R foot; FROM) NEURO: oriented X3, motor nml, sensation nml Discharge Clincal Impression: Contusion of right foot Qualifiers: Encounter type: initial encounter Qualified Code(s): S90.31XA - Contusion of right foot, initial encounter Referrals: Primary Doctor,No [Primary Care Provider] - Condition: Good Disposition: 01 HOME, SELF-CARE Decision to Admit: NO Decision Time: 16:45
[2017-08-16] MEDS ORDERED: KETOROLAC TROMETHAMINE 60 MG/2 ML VIAL IM ONE (16:02)
[2017-08-16] MEDS: KETOROLAC TROMETHAMINE 60 MG/2 ML VIAL ONE ×2 (16:07→17:00)
[2017-08-16] MEDS ORDERED: DIPH,PERTUSS(ACELL),TET VAC/PF 0.5 ML DISP.SYRIN IM ONE ×2 (16:49)
--- NOTE | 2017-08-16 19:02 | Diagnostic Imaging Report ---
TRICIA PRAKASH [facility] [address] [facility] [address] [place] [address]. [id number] Report Submission Date: Aug 16, 2017 4:22:53 PM CDT Patient Study Name: TAMARA HILL Date: Aug 16, 2017 4:05:05 PM CDT Modality Type: DX Gender: M Description: LOWER EXTREMITY : 75 Institution: [facility] Physician: TRICIA PRAKASH Examination: Plain film right foot History: RT FOOT, PAIN IN AREA OF 3-4 METATARSALS AFTER DROPPING HEAVY TOOL BOX ON FOOT TODAY (Hx) Findings: 3 views of the right foot demonstrates normal cortical margins. No fracture or dislocation. No soft tissue swelling. No joint effusion. Impression: No acute osseous process. Electronically signed on Aug 16, 2017 4:22:53 PM CDT by: Pardeep GE
== END 2017-08-16 17:00 | disposition home or self-care (01) ==
LOC: ED 15:40
DX: S90.31XA Contusion of right foot, initial encounter (principal); X58.XXXA Exposure to other specified factors, initial encounter; Y92.9 Unspecified place or not applicable; Y93.9 Activity, unspecified; Y99.9 Unspecified external cause status
CPT/HCPCS: 73630; 90715; J1885; 90471; 96372